=== PATIENT | female | born 1995 | race Hispanic/Latino ===

== ENCOUNTER 2018-04-26 13:19 | Inpatient (IN) | payer MEDICAID, OTHER ==
[~2018-04-26] VITALS: Ht 157.5 cm; Wt 46.3 kg
[2018-04-26] MEDS ORDERED: LEVOFLOXACIN 750 MG/D5W 150 ML 150 ML ONE (14:15)
[2018-04-26] MEDS ORDERED: SODIUM CHLORIDE 0.9% 1000ML 2,000 ML IV ONE (14:15)
[2018-04-26] MEDS ORDERED: ACETAMINOPHEN EXTRA STRENGTH 500 MG TABLET ONE (14:16)
[2018-04-26 14:26] LABS: BASOPHILS % (AUTO) 0.3 % (0.0-5.0); HEMATOCRIT 38.6 % (36-48); LYMPHOCYTES % (AUTO) 3.5 % (21.0-51.0); MEAN CORPUSCULAR HEMOGLOBIN 28.4 pg (27.0-33.0); MEAN CORPUSCULAR HGB CONC 32.5 g/dL (32.0-36.0); MEAN CORPUSCULAR VOLUME 87.4 fL (79-99); MONOCYTES % (AUTO) 9.3 % (3.0-13.0); NEUTROPHILS % (AUTO) 86.9 % (40.0-77.0); PLATELET COUNT (AUTO) 211 K/uL (130-400); RED BLOOD CELL COUNT(AUTO) 4.42 MIL/uL (4.00-5.50); RED CELL DISTRIBUTION WIDTH 15.9 % (11.0-15.5); WHITE BLOOD COUNT (AUTO) 14.5 K/uL (4.8-10.8)
[2018-04-26] MEDS ORDERED: ONDANSETRON HCL 4 MG/2 ML VIAL ONE (14:32)
[2018-04-26] MEDS ORDERED: MORPHINE SULFATE 4 MG/1ML SYG ONE ×2 (14:32→19:48)
[2018-04-26 14:45] LABS: INR 0.99 (0.85-1.15); PARTIAL THROMBOPLASTIN TIME 38.9 SEC (26.3-35.5); PROTHROMBIN TIME 10.4 SEC (9.6-11.6)
[2018-04-26 14:54] LABS: CARBON DIOXIDE 26 mmol/L (21-32); CHLORIDE 97 mmol/L (101-111); CREATININE 1.1 mg/dL (0.5-1.5); GLOMERULAR FILTR. RATE CALC 65 mL/min (>60); GLUCOSE,RANDOM 141 mg/dL (70-105); POTASSIUM 4.2 mmol/L (3.5-5.1); SODIUM SERUM 132 mmol/L (136-145); UREA NITROGEN, BLOOD 14 mg/dL (7-18)
[2018-04-26] MEDS ORDERED: SODIUM CHLORIDE 0.9% 1000ML 1,000 ML IV ONE (14:57)
[2018-04-26 15:05] LABS: BILIRUBIN,TOTAL 0.9 mg/dL (0.2-1.0); MYOGLOBIN 19 ng/mL (10-92); TOTAL PROTEIN, SERUM 7.9 g/dL (6.0-8.3); TROPONIN I < 0.04 ng/mL (0.00-0.06)
[2018-04-26 15:29] LABS: ALANINE AMINOTRANSFERASE 17 U/L (12-78); ALBUMIN 3.4 g/dL (3.5-5.0); ASPARTATE AMINOTRANSFERASE 20 U/L (10-37); CREATINE KINASE, TOTAL 51 U/L (21-232)
[2018-04-26 15:37] LABS: APPEARANCE,URINE Clear (CLEAR); BILIRUBIN,URINE Negative (NEGATIVE); COLOR,URINE Yellow (YELLOW); GLUCOSE, URINE (UA) Negative (NEGATIVE); KETONES,URINE Trace mg/dL (NEGATIVE); LEUKOCYTE ESTERASE ,URINE Moderate (NEGATIVE); NITRATE,URINE Positive (NEGATIVE); OCCULT BLOOD,URINE Large (NEGATIVE); PROTEIN,URINE POS 2+ (NEGATIVE)
[2018-04-26 15:54] LABS: BACTERIA,URINE Many /HPF (None Seen); WBC,URINE 26-50 /HPF (0-1)
[2018-04-26] MEDS ORDERED: ACETAMINOPHEN 325 MG TAB PO PRN (18:45)
[2018-04-26 21:10] VITALS: BP 109/71
[2018-04-26] MEDS: METRONIDAZOLE 500MG/100ML BAG 100 ML IV SCH (21:11)
[2018-04-26] MEDS: FAMOTIDINE/PF 20 MG/2 ML VIAL IV SCH (21:11)
[2018-04-26] MEDS: SODIUM CHLORIDE 0.9% 1000ML 1,000 ML IV SCH (21:14)
[2018-04-26] MEDS: ACETAMINOPHEN 325 MG TAB PO PRN (21:18)
[2018-04-26] MEDS: ONDANSETRON HCL 4 MG/2 ML VIAL IV PRN (22:14)
[2018-04-26] MEDS: MEPERIDINE-PF 25 MG/ML SYG IV PRN (22:15)
[2018-04-26 23:20] VITALS: BP 97/51
[2018-04-27] MEDS ORDERED: DiphenhydrAMINE HCL 50 MG/ML VIAL ONE (00:49)
[2018-04-27] MEDS: SODIUM CHLORIDE 0.9% 1000ML 1,000 ML IV SCH ×4 (01:24→21:34)
[2018-04-27] MEDS ORDERED: ETON68IM3 SQ (02:00)
[2018-04-27] MEDS: METRONIDAZOLE 500MG/100ML BAG 100 ML IV SCH ×3 (02:02→17:49)
[2018-04-27 03:19] VITALS: BP 107/70
[2018-04-27] MEDS: ACETAMINOPHEN 325 MG TAB PO PRN (03:29)
[2018-04-27 08:00] VITALS: BP 92/61
[2018-04-27] MEDS: MEPERIDINE-PF 25 MG/ML SYG IV PRN ×2 (08:21→12:29)
[2018-04-27] MEDS: ONDANSETRON HCL 4 MG/2 ML VIAL IV PRN ×2 (08:21→17:49)
[2018-04-27] MEDS: PREDNISONE 20 MG TABLET PO SCH (08:21)
[2018-04-27] MEDS: FAMOTIDINE/PF 20 MG/2 ML VIAL IV SCH ×2 (08:21→20:47)
[2018-04-27] MEDS: ENOXAPARIN SODIUM 40 MG/0.4 ML SYRINGE SQ SCH (08:25)
[2018-04-27 12:00] VITALS: BP 94/71
[2018-04-27] MEDS: DiphenhydrAMINE HCL 50 MG/ML VIAL IV PRN ×2 (12:22→23:59)
[2018-04-27] MEDS: LEVOFLOXACIN 500 MG/D5W 100 ML 100 ML IV SCH (15:26)
[2018-04-27 16:00] VITALS: BP 98/61
[2018-04-27] MEDS: MEPERIDINE HCL/PF 25 MG/0.5 ML AMPUL IVP PRN (17:51)
[2018-04-27 19:56] VITALS: BP 99/68
[2018-04-27 23:05] VITALS: BP 99/69
[2018-04-28] MEDS: ONDANSETRON HCL 4 MG/2 ML VIAL IV PRN ×4 (00:18→23:37)
[2018-04-28] MEDS: MEPERIDINE-PF 25 MG/ML SYG IV PRN ×5 (00:19→23:37)
[2018-04-28] MEDS: METRONIDAZOLE 500MG/100ML BAG 100 ML IV SCH ×3 (01:48→18:02)
[2018-04-28 03:15] VITALS: BP 108/54
[2018-04-28] MEDS: SODIUM CHLORIDE 0.9% 1000ML 1,000 ML IV SCH ×4 (03:45→23:38)
[2018-04-28 04:33] LABS: BASOPHILS % (AUTO) 0.2 % (0.0-5.0); HEMATOCRIT 29.1 % (36-48); LYMPHOCYTES % (AUTO) 8.7 % (21.0-51.0); MEAN CORPUSCULAR HEMOGLOBIN 28.5 pg (27.0-33.0); MEAN CORPUSCULAR HGB CONC 32.1 g/dL (32.0-36.0); MEAN CORPUSCULAR VOLUME 88.8 fL (79-99); NEUTROPHILS % (AUTO) 80.1 % (40.0-77.0); PLATELET COUNT (AUTO) 191 K/uL (130-400); RED BLOOD CELL COUNT(AUTO) 3.27 MIL/uL (4.00-5.50); RED CELL DISTRIBUTION WIDTH 16.2 % (11.0-15.5); WHITE BLOOD COUNT (AUTO) 8.8 K/uL (4.8-10.8)
[2018-04-28 04:58] LABS: CREATININE 0.6 mg/dL (0.5-1.5); POTASSIUM 4.4 mmol/L (3.5-5.1)
[2018-04-28] MEDS ORDERED: IOHEXOL-350 75 ML VIAL IV ONE (07:37)
[2018-04-28 08:38] VITALS: BP 117/83
[2018-04-28] MEDS: FAMOTIDINE/PF 20 MG/2 ML VIAL IV SCH ×2 (08:54→20:06)
[2018-04-28] MEDS: DiphenhydrAMINE HCL 50 MG/ML VIAL IV PRN (08:54)
[2018-04-28] MEDS: PREDNISONE 20 MG TABLET PO SCH (08:55)
[2018-04-28] MEDS: ENOXAPARIN SODIUM 40 MG/0.4 ML SYRINGE SQ SCH (09:00)
[2018-04-28 12:23] VITALS: BP 119/79
[2018-04-28] MEDS: LEVOFLOXACIN 500 MG/D5W 100 ML 100 ML IV SCH (14:00)
[2018-04-28 16:42] VITALS: BP 113/73
[2018-04-28 20:27] VITALS: BP 120/74
[2018-04-29] VITALS (8 sets, daily range): BP systolic 105–182; BP diastolic 58–80
[2018-04-29] MEDS: METRONIDAZOLE 500MG/100ML BAG 100 ML IV SCH ×3 (02:10→18:24)
[2018-04-29 04:49] LABS: BASOPHILS % (AUTO) 0.1 % (0.0-5.0); EOSINOPHILS % (AUTO) 0.1 % (0.0-8.0); HEMATOCRIT 28.7 % (36-48); LYMPHOCYTES % (AUTO) 14.7 % (21.0-51.0); MEAN CORPUSCULAR HEMOGLOBIN 28.3 pg (27.0-33.0); MEAN CORPUSCULAR HGB CONC 32.2 g/dL (32.0-36.0); MEAN CORPUSCULAR VOLUME 88.1 fL (79-99); MONOCYTES % (AUTO) 11.8 % (3.0-13.0); NEUTROPHILS % (AUTO) 73.3 % (40.0-77.0); NUCLEATED RED BLOOD CELLS 0.1 % (0.0-0.19); PLATELET COUNT (AUTO) 207 K/uL (130-400); RED BLOOD CELL COUNT(AUTO) 3.26 MIL/uL (4.00-5.50); RED CELL DISTRIBUTION WIDTH 16.6 % (11.0-15.5); WHITE BLOOD COUNT (AUTO) 7.7 K/uL (4.8-10.8)
[2018-04-29 05:04] LABS: CREATININE 0.6 mg/dL (0.5-1.5); POTASSIUM 3.8 mmol/L (3.5-5.1)
[2018-04-29] MEDS: SODIUM CHLORIDE 0.9% 1000ML 1,000 ML IV SCH ×2 (05:44→15:55)
[2018-04-29] MEDS: MEPERIDINE-PF 25 MG/ML SYG IV PRN (06:37)
[2018-04-29] MEDS: PREDNISONE 20 MG TABLET PO SCH (10:17)
[2018-04-29] MEDS: ENOXAPARIN SODIUM 40 MG/0.4 ML SYRINGE SQ SCH (10:17)
[2018-04-29] MEDS: FAMOTIDINE/PF 20 MG/2 ML VIAL IV SCH ×2 (10:17→20:36)
[2018-04-29] MEDS: ONDANSETRON HCL 4 MG/2 ML VIAL IV PRN (13:24)
[2018-04-29] MEDS: LEVOFLOXACIN 500 MG/D5W 100 ML 100 ML IV SCH (13:24)
[2018-04-29] MEDS ORDERED: KETOROLAC TROMETHAMINE 15MG/ML IM PRN (15:00)
[2018-04-29] MEDS ORDERED: KETOROLAC TROMETHAMINE 15MG/ML ONE (15:45)
[2018-04-29] MEDS: MEPERIDINE HCL/PF 25 MG/0.5 ML AMPUL IVP PRN (22:59)
[2018-04-30] VITALS (7 sets, daily range): BP systolic 107–139; BP diastolic 56–82
[2018-04-30] MEDS: METRONIDAZOLE 500MG/100ML BAG 100 ML IV SCH ×3 (02:00→17:32)
[2018-04-30] MEDS: ONDANSETRON HCL 4 MG/2 ML VIAL IV PRN ×2 (04:25→11:00)
[2018-04-30 04:46] LABS: BASOPHILS % (AUTO) 0.1 % (0.0-5.0); EOSINOPHILS % (AUTO) 0.1 % (0.0-8.0); HEMATOCRIT 29.8 % (36-48); LYMPHOCYTES % (AUTO) 27.6 % (21.0-51.0); MEAN CORPUSCULAR HEMOGLOBIN 28.4 pg (27.0-33.0); MEAN CORPUSCULAR HGB CONC 32.4 g/dL (32.0-36.0); MEAN CORPUSCULAR VOLUME 87.7 fL (79-99); MONOCYTES % (AUTO) 17.7 % (3.0-13.0); NEUTROPHILS % (AUTO) 54.5 % (40.0-77.0); PLATELET COUNT (AUTO) 249 K/uL (130-400); RED CELL DISTRIBUTION WIDTH 16.4 % (11.0-15.5); WHITE BLOOD COUNT (AUTO) 4.5 K/uL (4.8-10.8)
[2018-04-30 04:59] LABS: CREATININE 0.6 mg/dL (0.5-1.5); POTASSIUM 3.3 mmol/L (3.5-5.1)
[2018-04-30] MEDS ORDERED: PROMETHAZINE HCL 25 MG/ML 1ML AMPULE IM PRN (08:45)
[2018-04-30] MEDS ORDERED: POTASSIUM CHLORIDE 10% ELIXIR 20 MEQ/15 ML UDCUP PO SCH (08:45)
[2018-04-30] MEDS: PREDNISONE 20 MG TABLET PO SCH (11:01)
[2018-04-30] MEDS: FAMOTIDINE/PF 20 MG/2 ML VIAL IV SCH ×2 (11:01→20:38)
[2018-04-30] MEDS: LEVOFLOXACIN 500 MG/D5W 100 ML 100 ML IV SCH (11:01)
[2018-04-30] MEDS: ENOXAPARIN SODIUM 40 MG/0.4 ML SYRINGE SQ SCH (11:01)
[2018-04-30] MEDS: SODIUM CHLORIDE 0.9% 1000ML 1,000 ML IV SCH ×2 (11:02→17:32)
[2018-04-30] MEDS ORDERED: POTASSIUM CHLORIDE 20 MEQ ERTAB PO ONE ×2 (11:11→12:30)
[2018-04-30] MEDS: MEPERIDINE HCL/PF 25 MG/0.5 ML AMPUL IVP PRN ×2 (11:16→20:41)
[2018-04-30] MEDS ORDERED: ETONOGESTREL 68 MG SQ SCH (21:30)
[2018-05-01] MEDS: METRONIDAZOLE 500MG/100ML BAG 100 ML IV SCH ×2 (03:04→09:07)
[2018-05-01 04:00] VITALS: BP 113/75
[2018-05-01] MEDS: ACETAMINOPHEN 325 MG TAB PO PRN (05:24)
[2018-05-01 08:00] VITALS: BP 112/67
[2018-05-01] MEDS ORDERED: ONDA4TAB4 PO (08:25)
[2018-05-01] MEDS ORDERED: CIPR-279 PO (08:25)
[2018-05-01] MEDS: ENOXAPARIN SODIUM 40 MG/0.4 ML SYRINGE SQ SCH (09:06)
[2018-05-01] MEDS: SODIUM CHLORIDE 0.9% 1000ML 1,000 ML IV SCH (09:07)
[2018-05-01] MEDS: FAMOTIDINE/PF 20 MG/2 ML VIAL IV SCH (09:07)
[2018-05-01] MEDS: PREDNISONE 20 MG TABLET PO SCH (09:07)
[2018-05-01 11:00] VITALS: BP 123/74
[2018-05-01] MEDS: LEVOFLOXACIN 500 MG/D5W 100 ML 100 ML IV SCH (13:57)
== END 2018-05-01 15:30 | disposition home or self-care (01) | DRG 872 ==
LOC: EDH 13:19 → EDHIP 13:20 → 4BH 20:18
PROVIDERS: ADMIT Internal Medicine; ATTEND Internal Medicine
DX: A41.50 Gram-negative sepsis, unspecified (principal); N17.9 Acute kidney failure, unspecified; E87.1 Hypo-osmolality and hyponatremia; N39.0 Urinary tract infection, site not specified; K80.20 Calculus of gallbladder without cholecystitis without obstruction; E86.1 Hypovolemia; B96.20 Unspecified Escherichia coli [E. coli] as the cause of diseases classified elsewhere; N20.0 Calculus of kidney; Z88.0 Allergy status to penicillin
CPT/HCPCS: 36415; 71045; 74176; 74400; 76705; 80048; 80053; 81001; 82550; 83605; 83874; 84484; 85025; 85610; 85730; 87040; 87077; 87088; 87186; 93005; 99291; G0378; J1200; J1650; J1885; J1956; J2175; J2270; J2405; J3490; J7030; Q9967

== ENCOUNTER 2020-04-18 07:52 | Emergency (ER) | payer MEDICAID ==
[~2020-04-18 07:52] MED LIST: CIPR-279 PO; ONDA4TAB4 PO
[2020-04-18] MEDS ORDERED: METHYLPREDNISOLONE SOD SUCC 40MG/ML 1ML ONE (09:12)
[2020-04-18] MEDS ORDERED: KETOROLAC TROMETHAMINE 30MG/ML ONE (09:12)
== END 2020-04-18 09:58 | disposition home or self-care (01) ==
LOC: EDH 07:52
DX: S80.02XA Contusion of left knee, initial encounter (principal); S90.32XA Contusion of left foot, initial encounter; Z88.0 Allergy status to penicillin; Z90.49 Acquired absence of other specified parts of digestive tract; W18.39XA Other fall on same level, initial encounter; Y93.89 Activity, other specified; Y92.89 Other specified places as the place of occurrence of the external cause; Y99.8 Other external cause status
CPT/HCPCS: 73562; 73630; 81025; 96372 ×2; 99284; J1885; J2920

== ENCOUNTER → 2022-04-07 | Outpatient (CLI) | payer MEDICAID | END | disposition home or self-care (01) | LOC: RAH 15:20 | PROVIDERS: ATTEND Urology | DX: N20.0 Calculus of kidney (principal) | CPT/HCPCS: 74018; 76100 ==

== ENCOUNTER → 2022-05-16 | Outpatient (CLI) | payer MEDICAID | END | disposition home or self-care (01) | LOC: RAH 12:16 | PROVIDERS: ATTEND Urology | DX: N20.0 Calculus of kidney (principal); Z93.6 Other artificial openings of urinary tract status | CPT/HCPCS: 74018; 76100 ==

== ENCOUNTER 2023-01-11 19:28 | Emergency (ER) | payer OTHER ==
[~2023-01-11] VITALS: Ht 154.9 cm; Wt 52.2 kg
[2023-01-11 19:59] LABS: ADD UA MICROSCOPIC YES; APPEARANCE,URINE CLEAR (CLEAR); BILIRUBIN,URINE NEGATIVE (NEGATIVE); COLOR,URINE COLORLESS (YELLOW); GLUCOSE, URINE (UA) NEGATIVE (NEGATIVE); KETONES,URINE NEGATIVE (NEGATIVE); LEUKOCYTE ESTERASE ,URINE NEGATIVE Leu/uL (NEGATIVE); NITRATE,URINE NEGATIVE (NEGATIVE); OCCULT BLOOD,URINE LARGE (NEGATIVE); PROTEIN,URINE NEGATIVE (NEGATIVE); UROBILINOGEN,URINE 0.2 mg/dL (0.2-1.0)
[2023-01-11 20:00] LABS: SQUAMOUS EPITHELIAL CELL,UR RARE /HPF (0-2); WBC,URINE 0-1 /HPF (0-1)
[2023-01-11 20:01] LABS: HCG,QUALITATIVE URINE NEGATIVE (NEGATIVE)
[2023-01-11] MEDS ORDERED: 0.9%NACL 1000ML 1,000 ML IV ONE (20:30)
[2023-01-11 20:32] LABS: BASOPHILS # (AUTO) 0.03 K/uL (0.00-0.20); BASOPHILS % (AUTO) 0.5 % (0.0-5.0); EOSINOPHILS # (AUTO) 0.07 K/uL (0.00-0.70); EOSINOPHILS % (AUTO) 1.1 % (0.0-8.0); HEMATOCRIT 38.3 % (36-48); IMMATURE GRANULOCYTE ABSOLUTE 0.02 K/uL (0-1); LYMPHOCYTES # (AUTO) 2.2 K/uL (1.0-4.8); LYMPHOCYTES % (AUTO) 34.2 % (21.0-51.0); MEAN CORPUSCULAR HEMOGLOBIN 31.3 pg (27.0-33.0); MEAN CORPUSCULAR HGB CONC 32.6 g/dL (32.0-36.0); MEAN CORPUSCULAR VOLUME 95.8 fL (79-99); MONOCYTES # (AUTO) 0.6 K/uL (0.1-1.0); MONOCYTES % (AUTO) 9.1 % (3.0-13.0); NEUTROPHILS # (AUTO) 3.5 K/uL (1.8-7.7); NEUTROPHILS % (AUTO) 54.8 % (40.0-77.0); PLATELET COUNT (AUTO) 296 K/uL (130-400); RED CELL DISTRIBUTION WIDTH 13.5 % (11.0-15.5); WHITE BLOOD COUNT (AUTO) 6.3 K/uL (4.8-10.8)
[2023-01-11 20:46] LABS: CREATININE 0.7 mg/dL (0.5-1.5); POTASSIUM 3.5 mmol/L (3.5-5.1)
[2023-01-11 20:50] LABS: ALBUMIN 3.7 g/dL (3.5-5.0); BILIRUBIN,TOTAL 0.5 mg/dL (0.2-1.0); TOTAL PROTEIN, SERUM 7.3 g/dL (6.0-8.3)
[2023-01-11] MEDS ORDERED: DICYCLOMINE 20MG (10MG/ML) AMP IM STA (21:10)
[2023-01-11] MEDS ORDERED: IBUP-1493 PO (21:12)
[2023-01-11 21:25] VITALS: BP 118/80; PULSE 72; RESP 18; O2SAT 98
== END 2023-01-11 21:40 | disposition home or self-care (01) ==
LOC: EDH 19:28
DX: R10.9 Unspecified abdominal pain (principal); K42.9 Umbilical hernia without obstruction or gangrene; Z87.440 Personal history of urinary (tract) infections; Z88.0 Allergy status to penicillin; Z90.49 Acquired absence of other specified parts of digestive tract; Z98.890 Other specified postprocedural states; Z79.899 Other long term (current) drug therapy
CPT/HCPCS: 99285; 74176; 96360; 82550; 80053; 83690; 85025; 87088; 81001; 81025; 36415; 96372; J7030; J0500

== ENCOUNTER 2023-04-05 16:00 | Emergency (ER) | payer OTHER ==
[~2023-04-05] VITALS: Ht 154.9 cm; Wt 54.4 kg
[~2023-04-05 16:00] MED LIST changes: +IBUP-1493 PO
[2023-04-05 19:19] LABS: BASOPHILS # (AUTO) 0.06 K/uL (0.00-0.20); BASOPHILS % (AUTO) 0.6 % (0.0-5.0); EOSINOPHILS # (AUTO) 0.08 K/uL (0.00-0.70); EOSINOPHILS % (AUTO) 0.7 % (0.0-8.0); HEMATOCRIT 39.3 % (36-48); IMMATURE GRANULOCYTE ABSOLUTE 0.04 K/uL (0-1); LYMPHOCYTES % (AUTO) 18.4 % (21.0-51.0); MEAN CORPUSCULAR HEMOGLOBIN 30.6 pg (27.0-33.0); MEAN CORPUSCULAR HGB CONC 32.6 g/dL (32.0-36.0); MONOCYTES # (AUTO) 0.9 K/uL (0.1-1.0); MONOCYTES % (AUTO) 8.6 % (3.0-13.0); NEUTROPHILS # (AUTO) 7.6 K/uL (1.8-7.7); NEUTROPHILS % (AUTO) 71.3 % (40.0-77.0); PLATELET COUNT (AUTO) 302 K/uL (130-400); RED BLOOD CELL COUNT(AUTO) 4.18 MIL/uL (4.00-5.50); RED CELL DISTRIBUTION WIDTH 14.2 % (11.0-15.5); WHITE BLOOD COUNT (AUTO) 10.7 K/uL (4.8-10.8)
[2023-04-05 19:36] LABS: CREATININE 0.8 mg/dL (0.5-1.5); POTASSIUM 3.4 mmol/L (3.5-5.1)
[2023-04-05 19:41] LABS: ALBUMIN 4.1 g/dL (3.5-5.0); BILIRUBIN,TOTAL 0.7 mg/dL (0.2-1.0); TOTAL PROTEIN, SERUM 7.8 g/dL (6.0-8.3)
[2023-04-05 21:54] LABS: APPEARANCE,URINE CLEAR (CLEAR); BILIRUBIN,URINE NEGATIVE (NEGATIVE); COLOR,URINE COLORLESS (YELLOW); GLUCOSE, URINE (UA) NEGATIVE (NEGATIVE); KETONES,URINE NEGATIVE (NEGATIVE); LEUKOCYTE ESTERASE ,URINE NEGATIVE Leu/uL (NEGATIVE); NITRATE,URINE NEGATIVE (NEGATIVE); OCCULT BLOOD,URINE NEGATIVE (NEGATIVE); PH,URINE 6.5 (5.0-8.0); PROTEIN,URINE NEGATIVE (NEGATIVE); UROBILINOGEN,URINE 0.2 mg/dL (0.2-1.0)
[2023-04-05 21:55] LABS: ADD UA MICROSCOPIC NO; HCG,QUALITATIVE URINE NEGATIVE (NEGATIVE)
[2023-04-05] MEDS: ACETAMINOPHEN 500 MG TABLET PO ONE (22:08)
[2023-04-05 22:37] LABS: SARS-CoV-2, RNA, NAAT NEGATIVE SARS CoV-2 (NEGATIVE)
[2023-04-05 22:40] LABS: RAPID GROUP A STREP negative (NEGATIVE)
[2023-04-05 22:43] LABS: INFLUENZA TYPE B Negative For Type B (NEGATIVE)
[2023-04-05 22:47] LABS: INFLUENZA TYPE A Positive For Type A (NEGATIVE)
[2023-04-05] MEDS ORDERED: OSEL75 PO (22:50)
[2023-04-05] MEDS ORDERED: BENZ200C53 PO (22:50)
[2023-04-05] MEDS ORDERED: LORA10TA7 PO (22:50)
[2023-04-05] MEDS ORDERED: FLUT9.9S16 NS (22:50)
[2023-04-05 23:06] VITALS: BP 130/72; PULSE 79; RESP 18; O2SAT 98
== END 2023-04-05 23:08 | disposition home or self-care (01) ==
LOC: EDH 16:00
DX: J10.1 Influenza due to other identified influenza virus with other respiratory manifestations (principal); Z20.822 Contact with and (suspected) exposure to COVID-19; Z90.49 Acquired absence of other specified parts of digestive tract; Z79.899 Other long term (current) drug therapy; Z98.890 Other specified postprocedural states
CPT/HCPCS: 36415; 80053; 81003; 81025; 83690; 85025; 87635; 87804; 87880

== ENCOUNTER 2023-10-22 12:24 | Emergency (ER) | payer SELFPAY ==
[~2023-10-22] VITALS: Ht 154.9 cm; Wt 53.5 kg
[~2023-10-22 12:24] MED LIST changes: +BENZ200C53 PO; +FLUT9.9S16 NS; +LORA10TA7 PO; +OSEL75 PO
[2023-10-22 12:59] LABS: APPEARANCE,URINE CLEAR (CLEAR); BILIRUBIN,URINE NEGATIVE (NEGATIVE); COLOR,URINE COLORLESS (YELLOW); GLUCOSE, URINE (UA) NEGATIVE (NEGATIVE); KETONES,URINE NEGATIVE (NEGATIVE); LEUKOCYTE ESTERASE ,URINE NEGATIVE Leu/uL (NEGATIVE); NITRATE,URINE NEGATIVE (NEGATIVE); OCCULT BLOOD,URINE NEGATIVE (NEGATIVE); PH,URINE 6.5 (5.0-8.0); PROTEIN,URINE NEGATIVE (NEGATIVE); UROBILINOGEN,URINE 0.2 mg/dL (0.2-1.0)
[2023-10-22 13:08] LABS: HCG,QUALITATIVE URINE NEGATIVE (NEGATIVE)
[2023-10-22 13:13] LABS: ADD UA MICROSCOPIC NO
[2023-10-22 13:34] LABS: BASOPHILS # (AUTO) 0.03 K/uL (0.00-0.20); BASOPHILS % (AUTO) 0.5 % (0.0-5.0); EOSINOPHILS # (AUTO) 0.04 K/uL (0.00-0.70); EOSINOPHILS % (AUTO) 0.6 % (0.0-8.0); HEMATOCRIT 43.3 % (36-48); IMMATURE GRANULOCYTE ABSOLUTE 0.02 K/uL (0-1); LYMPHOCYTES # (AUTO) 0.4 K/uL (1.0-4.8); MEAN CORPUSCULAR HEMOGLOBIN 28.9 pg (27.0-33.0); MEAN CORPUSCULAR HGB CONC 31.9 g/dL (32.0-36.0); MEAN CORPUSCULAR VOLUME 90.6 fL (79-99); MONOCYTES # (AUTO) 0.5 K/uL (0.1-1.0); NEUTROPHILS # (AUTO) 5.6 K/uL (1.8-7.7); NEUTROPHILS % (AUTO) 84.6 % (40.0-77.0); PLATELET COUNT (AUTO) 266 K/uL (130-400); RED BLOOD CELL COUNT(AUTO) 4.78 MIL/uL (4.00-5.50); RED CELL DISTRIBUTION WIDTH 13.7 % (11.0-15.5); WHITE BLOOD COUNT (AUTO) 6.6 K/uL (4.8-10.8)
[2023-10-22 13:38] LABS: CREATININE 0.8 mg/dL (0.5-1.0); POTASSIUM 4.4 mmol/L (3.5-5.1)
[2023-10-22 13:43] LABS: ALBUMIN 4.3 g/dL (3.5-5.0); TOTAL PROTEIN, SERUM 8.4 g/dL (6.0-8.3)
[2023-10-22] MEDS: KETOROLAC 30MG VIAL (30MG/ML) IVP ONE ×2 (13:50→15:36)
[2023-10-22] MEDS: 0.9%NACL 1000ML 1,000 ML IV ONE (13:50)
[2023-10-22] MEDS: ONDANSETRON 4MG INJ IVP ONE (13:50)
[2023-10-22] MEDS ORDERED: CYCL10TA16 PO (15:28)
[2023-10-22] MEDS ORDERED: IBUP-2077 PO (15:28)
[2023-10-22 15:39] VITALS: BP 106/69; PULSE 81; RESP 16; O2SAT 98
== END 2023-10-22 15:53 | disposition home or self-care (01) ==
LOC: EDH 12:24
DX: N20.0 Calculus of kidney (principal); Z87.440 Personal history of urinary (tract) infections; Z79.899 Other long term (current) drug therapy; Z90.49 Acquired absence of other specified parts of digestive tract; Z98.890 Other specified postprocedural states; Z88.0 Allergy status to penicillin
CPT/HCPCS: 99285; 74176; 96374; 96361; 96375; 80053; 85025; 87040; 83605; 81003; 81025; 36415; 96376; J7030; J2405; J1885 ×2

== ENCOUNTER 2024-03-23 09:26 | Emergency (ER) | payer SELFPAY ==
[~2024-03-23] VITALS: Ht 154.9 cm; Wt 56.7 kg
[~2024-03-23 09:26] MED LIST changes: +CYCL10TA16 PO; +IBUP-2077 PO
[2024-03-23 10:37] LABS: RAPID GROUP A STREP negative (NEGATIVE)
[2024-03-23 10:50] LABS: INFLUENZA TYPE A Negative For Type A (NEGATIVE)
[2024-03-23 11:08] LABS: INFLUENZA TYPE B Positive For Type B (NEGATIVE)
[2024-03-23 11:09] LABS: SARS-CoV-2, RNA, NAAT NEGATIVE SARS CoV-2 (NEGATIVE)
--- NOTE | 2024-03-23 11:12 | ERN ---
ED Note History of Present Illness Stated Complaint: FLU SYMPTOMS Chief Complaint: Flu Symptoms Time Seen by MD: 09:31 Dictation: 29-year-old female presents to the ED for evaluation of worsening cough onset two days ago. Patient reports nasal congestion, chills, rhinorrhea, cold sweats, and headache, but denies any other associated symptoms at this time. Allergy to penicillin. Allergies: Coded Allergies: Penicillins (Unverified Allergy, Unknown, 11/19/16) Home Meds Active Scripts Oseltamivir Phosphate (Tamiflu) 75 Mg Cap, 75 MG PO BID for 5 Days, #10 CAP Prov:CHANDLER COLE MD 03/23/24 Ibuprofen (Ibuprofen 800 mg Tab) 800 Mg Tab, 800 MG PO Q8H PRN for fever or pain, #30 TAB 0 Refills Prov:JAEL AMAYA NP 10/22/23 Cyclobenzaprine HCl (Flexeril) 10 Mg Tab, 10 MG PO TID for muscle sstiffness, #14 TAB 0 Refills Prov:JAEL AMAYA NP 10/22/23 Loratadine (Loratadine) 10 Mg Tablet, 10 MG PO DAILY for 5 Days, #5 TAB Prov:CHANCE BLEDSOE V ECONOMIC GEOGRAPHER 04/05/23 Fluticasone Furoate (Flonase Sensimist) 27.5 Mcg/Actuation [place].susp, 1 SPRAY NS DAILY PRN for NASAL CONGESTION, #15 ML Prov:CHANCE BLEDSOE V ECONOMIC GEOGRAPHER 04/05/23 Benzonatate (Benzonatate) 200 Mg Capsule, 200 MG PO TID PRN for COUGH for 14 Days, #42 CAP Prov:CHANCE BLEDSOE V [employer]CONOMIC GEOGRAPHER 04/05/23 Oseltamivir Phosphate (Tamiflu) 75 Mg Cap, 75 MG PO BID for 5 Days, #10 CAP Prov:CHANCE BLEDSOE V ECONOMIC GEOGRAPHER 04/05/23 Ibuprofen (Motrin/Advil) 800 Mg Tab, 800 MG PO TID, #30 TAB Prov:LARA BRYANT MD 01/11/23 Ondansetron HCl (Zofran) 4 Mg Tablet, 4 MG PO TIDMEALS PRN for NAUSEA/VOMITING, #21 TAB 0 Refills Prov:INGRID OAKLEY MD 05/01/18 Ciprofloxacin HCl (Cipro) 250 Mg Tablet, 250 MG PO BID for 10 Days, TAB 0 Refills Prov:INGRID OAKLEY MD 05/01/18 Past Medical History Past Medical History: Kidney Stone, UTI Surgical History: Appendectomy, Other, Surgical History Other: OVARIAN CYST, KIDNEY STONE, NEPHROSTOMY TUBES History: Not Applicable Review of System Dictation Constitutional: Negative for fever,chills, and weight loss Eyes: Negative for injury, pain,redness, and discharge ENT: Positive for nasal congestion and rhinorrhea Cardiovascular: Negative for chest pain, palpitations, and edema Respiratory: Positive for cough,Negative for shortness of breath, and wheezing, Abdomen/GI: Negative for abdominal pain, nausea, vomiting, diarrhea, and constipation Back: Negative for injury and pain : Negative for injury, bleeding and discharge MS/Extremity: Negative for injury and deformity Skin: Negative for rash, and discoloration Neuro: Positive for headache negative for weakness, numbness, tingling, and seizure Psych: Negative for suicide ideation, homicidal ideation, and hallucinations Initial Vital Sign VS Vital Signs Date Time Temp Pulse Resp B/P (MAP) Pulse Ox O2 Delivery O2 Flow Rate FiO2 03/23/24 09:27 99.0 98 18 125/88 98 Room Air* 0 21 Physical Exam Dictation General: awake, alert, NAD Head/Face: Normocephalic, atraumatic Eyes: PERRL, EOMI, vision at baseline ENT: oral cavity clear, TMs clear, rhinorrhea nasal congestion Neck: Trachea midline, supple, no nuchal rigidity Cardiovascular: RRR, normal S1/S2, No MRGs, no JVD Respiratory: CTAB, no respiratory distress, No rales or wheezes Abdomen: Soft, non-tender, non-distended, normal bowel sounds, no guarding or rebound. Skin: Warm, dry, normal turgor, no rash MS/Extremity: Pulses equal, no cyanosis, neurovascular intact, FROM Neuro: COAx4, GCS 15, strength 5/5, CN 2-12 intact, normal cerebellar exam, normal gait, Psych: Normal behavior, mood, and affect normal Results (Laboratory/Radiology) Laboratory/Radiology Laboratory Tests Test 03/23/24 09:32 Influenza Type A Antigen Negative For Type A Influenza Type B Antigen Positive For Type B SARS-CoV-2, RNA, NAAT NEGATIVE SARS CoV-2 Group A Streptococcus Rapid negative (NEGATIVE) Labs Reviewed?: Yes ED Course ED Course Orders Procedure Category Date Status Time Influenza Type A & B, LAB 03/23/24 Complete Rapid 09:30 Rapid (Group A Strep) LAB 03/23/24 Complete 09:30 Covid Rna Naat LAB 03/23/24 Complete 09:30 Dexamethasone 4mg/Ml PHA 03/23/24 In Process 1ml Vial (Dexametha 11:30 Current Medications Medications (Trade) Dose Ordered Sig/Jean-Paul Route PRN Reason Start Time Stop Time Status Last Admin Dose Admin Dexamethasone Sodium Phosphate (dexaMETHasone 4MG/ML 1ML VIAL) 10 mg ONCE ONCE IM 03/23/24 11:30 03/23/24 11:31 Vital Signs Date Time Temp Pulse Resp B/P (MAP) Pulse Ox O2 Delivery O2 Flow Rate FiO2 03/23/24 09: 99.0 98 18 125/88 98 Room Air 03/23/24 09:27 99.0 98 18 125/88 98 Room Air* 0 21 Medical Decision Making MDM MDM: Differential diagnosis: Influenza, URI, viral syndrome Risk of complication and/or morbidity or mortality of patient management: None Medications-Per medication reconciliation Need for hospitalization: Patient does not meet criteria for hospitalization. Need for emergency major/minor surgery: No There are no social concerns with this patient. Prescription drug management Prescriptions will include symptomatic care I independently interpreted the test that were performed, results were reviewed by me and considered findings on radiology if ordered. Medical management and examination interpretation discussions were had by me with other qualified healthcare professionals as indicated for the patient's care. DX & DISP Disposition: Discharge Departure Impression: Primary Impression: Influenza B Additional Impression: Acute URI Condition: Stable Scripts Oseltamivir Phosphate (Tamiflu) 75 Mg Cap 75 MG PO BID for 5 Days, #10 CAP Prov: CHANDLER COLE MD 03/23/24 Referrals: SELF,REFERRAL (PCP) CHANDLER COLE MD Mar 23, 2024 11:12
[2024-03-23] MEDS ORDERED: OSEL75 PO (11:21)
[2024-03-23] MEDS: dexaMETHasone SOD PHOSPHATE 4 MG/ML 1ML VIAL IM ONE (11:23)
[2024-03-23 11:29] VITALS: BP 125/88; PULSE 95; RESP 18; TEMP 98.9; O2SAT 98
--- NOTE | 2024-03-23 11:34 | NUR ---
PT DC COMPLETE 1135 UNABLE TO DEPART DUE TO REGISTRATION
== END 2024-03-23 11:55 | disposition home or self-care (01) ==
LOC: EDH 09:26
DX: J10.1 Influenza due to other identified influenza virus with other respiratory manifestations (principal); Z79.1 Long term (current) use of non-steroidal anti-inflammatories (NSAID); Z88.0 Allergy status to penicillin; Z90.49 Acquired absence of other specified parts of digestive tract; Z20.822 Contact with and (suspected) exposure to COVID-19
CPT/HCPCS: 99283; 87635; 87880; 87804 ×2; 96372; J1100